=== PATIENT | male | born 1970 | race African-American/Black ===

== ENCOUNTER → 2022-03-20 10:16 | Outpatient (REF) | payer OTHER, SELFPAY ==
--- NOTE | 2022-03-20 10:26 | CA_ITS ---
Acquisition Time: 2022-03-20 10:42:06 Total Exercise Time: 00:06:41 Test Indications: CP Medications: SEE CHART Protocol: LES Max HR: 148 BPM 87% of Pred: 170 BPM Max BP: 170/098 mmHG Max Work Load: 8.0 METS Exercise stress test with exercise 6 min 41 sec of Les protocol, achieving 87% MPHR, with report of 8/10 left chest tightness, without arrythmia, with normotensive response to exercise, without EKG changes meeting criteiria for ischemia. In recovery his chest tightness resolved with 6 min of rest. Test reviewed with Dr Harden Call placed to Dr Thompson office, message left with report and recommendation for exercise nuclear stress test to further evaluate for ischemia. Referred By: Armaan Thompson Overread By: NIKITA ENNIS
== END ==
LOC: HO.CARD 10:16
PROVIDERS: PCP Internal Medicine; Visit Provider Internal Medicine
DX: R07.89 Other chest pain (principal)
CPT/HCPCS: 93017